=== PATIENT | male | born 1945 | race Caucasian/White ===

== ENCOUNTER 2025-06-20 06:10 | Day surgery (SDC) | payer MEDICARE ==
[2025-06-19 11:30] VITALS: BMI 27.3
[2025-06-20] MEDS ORDERED: Ketorolac Tromethamine 30 MG (1 mL) VIAL ONE (06:37)
[2025-06-20] MEDS ORDERED: Acetaminophen 500 MG TAB ONE (06:37)
[2025-06-20] MEDS ORDERED: CEFAZOLIN 2 GM VIAL ONE (06:49)
[2025-06-20] MEDS ORDERED: Bupivacaine/Epinephrine 0.25% 30 ML VIAL ONE (06:50)
[2025-06-20] MEDS ORDERED: PROPOFOL 20 ML ONE (07:25)
[2025-06-20] MEDS ORDERED: Rocuronium Bromide 10 MG/ML (10ML VIAL) ONE (07:30)
[2025-06-20] MEDS ORDERED: Lidocaine 1% PF 5 ML VIAL ONE (07:30)
[2025-06-20] MEDS ORDERED: KETAMINE 100 MG/ML (5ML VIAL) ONE (07:32)
[2025-06-20] MEDS ORDERED: Glycopyrrolate 0.2 MG/ML 5 ML SYRINGE ONE (07:32)
[2025-06-20] MEDS ORDERED: Ondansetron PF 4 MG/2 ML Vial ONE (09:04)
[2025-06-20] MEDS ORDERED: SUGAMMADEX SODIUM 200 MG/2 ML VIAL ONE ×2 (09:06→09:13)
[2025-06-20] MEDS ORDERED: HYDROmorphone 0.5 MG/0.5 ML SYRINGE ONE (10:00)
[2025-06-20] MEDS ORDERED: HYDROcodone/Acetaminophen 5/325 mg Tablet ONE (10:57)
== END 2025-06-20 11:55 | disposition home or self-care (01) ==
LOC: CSHSDC 06:10
PROVIDERS: ATTEND Specialist
PROC: 0WUF4JZ Supplement Abdominal Wall with Synthetic Substitute, Percutaneous Endoscopic Approach (ICD-10-PCS; principal; 2025-06-20)
DX: K42.9 Umbilical hernia without obstruction or gangrene (principal); M62.08 Separation of muscle (nontraumatic), other site; I10 Essential (primary) hypertension; I25.10 Atherosclerotic heart disease of native coronary artery without angina pectoris; E78.2 Mixed hyperlipidemia; M10.9 Gout, unspecified; Z95.1 Presence of aortocoronary bypass graft; Z88.1 Allergy status to other antibiotic agents; Z79.899 Other long term (current) drug therapy
CPT/HCPCS: 49593; A6258; C1781; J1100; J1171; J1885; J2704; J3010; S2900; J2405